=== PATIENT | male | born 1980 | race Caucasian/White ===

== ENCOUNTER 2019-06-30 17:25 | Emergency (ER) | payer OTHER ==
[~2019-06-30] VITALS: Ht 175.3 cm; Wt 122.0 kg
[2019-06-30 17:33] VITALS: BP 139/96
--- NOTE | 2019-06-30 17:37 | NUR ---
WAIT AT LOBBY
--- NOTE | 2019-06-30 18:07 | NUR ---
pt ambulated to bed 8.
--- NOTE | 2019-06-30 18:16 | NUR ---
PT C/O CONSTANT PAIN ON FORESKIN W/ SX OF BURNING URINATION, WARMNESS, MULTIPLE CENTRALIZED YELLOWISH/WHITE SMALL ULCERS, ERYTHEMA, AND EDEMA ON FORESKIN X 3 DAYS. DENIES ABNORMAL PENIEL DISCHARGE OR FEVER. PATIENT STATES PAIN OF 9/10 AT THIS TIME; VSS; PATIENT POSITIONED FOR COMFORT; HOB ELEVATED; BEDRAILS UP X1; BED DOWN. ER MD MADE AWARE OF PT STATUS.
--- NOTE | 2019-06-30 19:27 | NUR ---
RECEIVED REPORT FROM DAY SHIFT RN; NO ACUTE DISTRESS @ THIS TIME. PT @ BEDSIDE. VSS.
[2019-06-30 20:17] VITALS: BP 139/78
--- NOTE | 2019-06-30 20:18 | NUR ---
Patient discharged with v/s stable. Written and verbal after care instructions given and explained. Patient alert, oriented and verbalized understanding of instructions. Ambulatory with steady gait. All questions addressed prior to discharge. ID band removed. Patient advised to follow up with PMD. Rx of ACYCLOVIR AND BACTRIM given. Patient educated on indication of medication including possible reaction and side effects. Opportunity to ask questions provided and answered.
[2019-07-03 06:11] LABS: CHLAMYDIA TRACHOMATIS AMP DNA Negative (Negative)
== END 2019-06-30 20:18 | disposition home or self-care (01) ==
LOC: MED 17:25
DX: N39.0 Urinary tract infection, site not specified (principal); A60.00 Herpesviral infection of urogenital system, unspecified
CPT/HCPCS: 36415; 81002; 87086; 87186; 87491; 99283